=== PATIENT | female | born 1955 | race Caucasian/White ===

== ENCOUNTER 2020-12-17 05:36 | Day surgery (SDC) | payer OTHER ==
[2020-12-16 12:53] VITALS: BMI 33.6
[2020-12-17 09:06] LABS: BASO % 1.5 % (0-2.0); EOS % 2.4 % (0-4.5); HEMOGLOBIN 14.6 GM/dL (10.7-15.3); LYMPH % 34.5 % (8-40); MCH 28.5 pg (25.7-33.7); MEAN CELL VOLUME 83.9 fl (80-96); MEAN PLT VOLUME 8.8 fl (7.5-11.1); MONO % 7.3 % (3.8-10.2); NEUT % 54.3 % (42.8-82.8); PLATELET COUNT 185 10^3/uL (134-434); RBC 5.12 M/mm3 (3.60-5.2); RDW 14.3 % (11.6-15.6); WHITE BLOOD COUNT 7.5 K/mm3 (4.0-10.0)
[2020-12-17 09:13] LABS: INR 0.92 (0.83-1.09); PROTHROMBIN TIME (PATIENT) 11.4 SEC (9.7-13.0)
[2020-12-17 17:07] VITALS: TEMP 98
[2020-12-17 17:12] VITALS: BP 109/58; PULSE 59
== END 2020-12-17 15:00 | disposition home or self-care (01) ==
LOC: JRADIR 05:36
PROVIDERS: ATTEND Internal Medicine Hematology & Oncology
PROC: 07DR3ZX Extraction of Iliac Bone Marrow, Percutaneous Approach, Diagnostic (ICD-10-PCS; principal; 2020-12-17)
PROC: 079T3ZX Drainage of Bone Marrow, Percutaneous Approach, Diagnostic (ICD-10-PCS; 2020-12-17)
DX: E88.09 Other disorders of plasma-protein metabolism, not elsewhere classified (principal)
CPT/HCPCS: 20225; 36415; 82962; 85025; 85610

== ENCOUNTER 2021-01-07 13:28 | Inpatient (IN) | payer OTHER ==
[2021-01-07 15:08] LABS: BASO % 0.9 % (0-2.0); EOS % 1.4 % (0-4.5); HEMATOCRIT 43.9 % (32.4-45.2); HEMOGLOBIN 14.9 GM/dL (10.7-15.3); MCH 28.4 pg (25.7-33.7); MEAN CELL VOLUME 83.5 fl (80-96); MEAN PLT VOLUME 8.7 fl (7.5-11.1); MONO % 6.5 % (3.8-10.2); NEUT % 63.2 % (42.8-82.8); PLATELET COUNT 201 10^3/uL (134-434); RBC 5.25 M/mm3 (3.60-5.2); RDW 14.1 % (11.6-15.6); WHITE BLOOD COUNT 6.9 K/mm3 (4.0-10.0)
[2021-01-07 15:14] LABS: INR 1.02 (0.83-1.09); PROTHROMBIN TIME (PATIENT) 12.3 SEC (9.7-13.0)
[2021-01-07 15:27] LABS: CHLORIDE 108 mmol/L (98-107); SODIUM 141 mmol/L (136-145)
[2021-01-07 15:29] LABS: CALCIUM 9.5 mg/dL (8.5-10.1)
[2021-01-07 15:30] LABS: ALBUMIN 3.5 g/dl (3.4-5.0); ANION GAP 7 MMOL/L (8-16); BLOOD UREA NITROGEN 18.1 mg/dL (7-18); CO2 26 mmol/L (21-32); GLUCOSE,RANDOM 152 mg/dL (74-106)
[2021-01-07 15:33] LABS: CREATININE 0.9 mg/dL (0.55-1.3); SGOT/AST 23 U/L (15-37); SGPT/ALT 25 U/L (13-61)
[2021-01-07 15:35] LABS: BILIRUBIN,TOTAL 1.2 mg/dL (0.2-1); TOT PROT 7.6 g/dl (6.4-8.2)
[2021-01-07 15:36] LABS: ALK PHOS 55 U/L (45-117)
[2021-01-08 02:42] VITALS: BMI 34.7
[2021-01-08] MEDS: LEVOTHYROXINE NA 50 MCG TABLET (FP) PO SCH (06:09)
[2021-01-08 08:13] LABS: BASO % 0.6 % (0-2.0); EOS % 1.7 % (0-4.5); HEMATOCRIT 44.1 % (32.4-45.2); HEMOGLOBIN 14.6 GM/dL (10.7-15.3); LYMPH % 39.2 % (8-40); MCH 27.9 pg (25.7-33.7); MCHC 33.1 g/dl (32.0-36.0); MEAN CELL VOLUME 84.2 fl (80-96); MONO % 7.4 % (3.8-10.2); NEUT % 51.1 % (42.8-82.8); PLATELET COUNT 181 10^3/uL (134-434); RBC 5.24 M/mm3 (3.60-5.2); RDW 14.3 % (11.6-15.6); WHITE BLOOD COUNT 6.8 K/mm3 (4.0-10.0)
[2021-01-08 08:46] LABS: BILIRUBIN,TOTAL 1.4 mg/dL (0.2-1); TOT PROT 6.8 g/dl (6.4-8.2)
[2021-01-08 08:47] LABS: ALBUMIN 3.4 g/dl (3.4-5.0)
[2021-01-08 08:48] LABS: BLOOD UREA NITROGEN 18.1 mg/dL (7-18); MAGNESIUM 1.8 mg/dL (1.8-2.4)
[2021-01-08 08:51] LABS: CREATININE 0.7 mg/dL (0.55-1.3)
[2021-01-08] MEDS: ASPIRIN 81 MG CHEWABLE TABLETS PO SCH (09:39)
[2021-01-08] MEDS: BACITRACIN 15 GM TUBE TOPICAL OINTMENT TP SCH ×2 (09:46→21:40)
[2021-01-09] MEDS: LEVOTHYROXINE NA 50 MCG TABLET (FP) PO SCH (06:16)
[2021-01-09 09:18] VITALS: PULSE 63; TEMP 97.9
[2021-01-09] MEDS: ASPIRIN 81 MG CHEWABLE TABLETS PO SCH (09:19)
[2021-01-09] MEDS: BACITRACIN 15 GM TUBE TOPICAL OINTMENT TP SCH (09:19)
[2021-01-09 10:04] VITALS: BP 120/67
[2021-01-11 17:09] LABS: FREE KAPPA,SERUM 15.8 mg/L (3.3-19.4)
== END 2021-01-09 13:31 | disposition home or self-care (01) | DRG 312 ==
LOC: JER 13:28 → JERBED 16:53 → J4W 01-08 00:25
PROVIDERS: ADMIT Family Medicine; ATTEND Family Medicine
DX: I95.1 Orthostatic hypotension (principal); I10 Essential (primary) hypertension; D75.1 Secondary polycythemia; E11.9 Type 2 diabetes mellitus without complications; D47.2 Monoclonal gammopathy; E78.5 Hyperlipidemia, unspecified; M79.603 Pain in arm, unspecified; R51.9 Headache, unspecified; R00.1 Bradycardia, unspecified; S50.01XA Contusion of right elbow, initial encounter; W18.39XA Other fall on same level, initial encounter; Y92.098 Other place in other non-institutional residence as the place of occurrence of the external cause; S63.591A Other specified sprain of right wrist, initial encounter
CPT/HCPCS: 36415; 70450-TC; 70551-TC; 71046-TC-FY; 73070-TC-RT-FY; 73110-TC-RT-FY; 80053; 80061; 82550; 82784; 82962; 83721; 83735; 83883; 84443; 84484; 85025; 85610; 93005; 93010; 93880-TC; 97116-GP; 97161-GP; 99285-25; C9803; U0003; U0005

== ENCOUNTER 2021-08-26 04:42 | Day surgery (SDC) | payer OTHER ==
[2021-08-24 14:21] VITALS: BMI 32.1
[2021-08-26 09:05] VITALS: TEMP 99
[2021-08-26 09:32] VITALS: BP 115/66; PULSE 72
== END 2021-08-26 09:41 | disposition home or self-care (01) ==
LOC: JASU-ENDO 04:42
PROVIDERS: ATTEND Internal Medicine Gastroenterology
PROC: 0DB68ZX Excision of Stomach, Via Natural or Artificial Opening Endoscopic, Diagnostic (ICD-10-PCS; principal; 2021-08-26 08:45)
DX: K29.50 Unspecified chronic gastritis without bleeding (principal)
CPT/HCPCS: 88305-TC; 88342-TC

== ENCOUNTER 2024-10-25 10:44 | Emergency (ER) | payer OTHER ==
[2024-10-25 11:02] VITALS: BP 149/74; PULSE 90; RESP 16; TEMP 98.6; BMI 30.8
[2024-10-25] MEDS ORDERED: ACETAMINOPHEN INJECTION 100 ML ONE (12:43)
[2024-10-25] MEDS: ACETAMINOPHEN 1000 MG/100 ML BAG IVPB ONE (12:59)
[2024-10-25 13:29] LABS: ABSOLUTE IMMATURE GRANULOCYTES 0.01 x10^3/uL (0.0-0.031); BASOPHILS # 0.04 x10^3/uL (0.01-0.08); EOSINOPHIL % 0.7 % (0.7-5.8); EOSINOPHILS # 0.04 x10^3/uL (0.04-0.36); HEMATOCRIT 43.3 % (34.1-44.9); HEMOGLOBIN 14.5 g/dL (11.2-15.7); MCHC 33.5 g/dl (32.2-35.5); MEAN PLT VOLUME 10.7 fl (9.4-12.3); MONOCYTE # 0.44 x10^3/uL (0.24-0.86); MONOCYTE % 7.8 % (4.7-12.5); PLATELET COUNT 186 x10^3/uL (182-369); RDW 14.5 % (12.4-16.4)
[2024-10-25 13:30] LABS: URINE APPEARANCE CLEAR; URINE BILIRUBIN NEGATIVE (NEGATIVE); URINE COLOR YELLOW; URINE GLUCOSE (UA) 3+ (NEGATIVE); URINE KETONE NEGATIVE (NEGATIVE); URINE LEUK ESTERASE NEGATIVE (NEGATIVE); URINE NITRITE NEGATIVE (NEGATIVE); URINE PROTEIN NEGATIVE (NEGATIVE); URINE UROBILINOGEN 0.2 mg/dL (0.2-1.0)
[2024-10-25 13:37] LABS: INR 0.99 (0.83-1.09); PROTHROMBIN TIME (PATIENT) 10.8 SEC (9.7-13.0)
[2024-10-25 13:39] LABS: ACTIVATED PTT 24.9 SECONDS (25.2-36.5)
[2024-10-25 13:59] LABS: POTASSIUM 3.8 mmol/L (3.5-5.1)
[2024-10-25 14:01] LABS: CALCIUM 9.6 mg/dL (8.5-10.1)
[2024-10-25 14:02] LABS: ALBUMIN 3.4 g/dl (3.4-5.0)
[2024-10-25 14:03] LABS: BLOOD UREA NITROGEN 19.1 mg/dL (7-18)
[2024-10-25 14:07] LABS: BILIRUBIN,TOTAL 1.4 mg/dL (0.2-1); CREATININE 0.6 mg/dL (0.55-1.3); MAGNESIUM 1.6 mg/dL (1.8-2.4); TOT PROT 7.1 g/dl (6.4-8.2)
[2024-10-25] MEDS: KETOROLAC TROMETHAMINE 15 MG/ML VIAL IVPUSH ONE (15:51)
[2024-10-25] MEDS ORDERED: KETOROLAC TROMETHAMINE 15 MG/ML VIAL ONE (16:11)
== END 2024-10-25 17:10 | disposition home or self-care (01) ==
LOC: JER 10:44
PROC: 3E033NZ Introduction of Analgesics, Hypnotics, Sedatives into Peripheral Vein, Percutaneous Approach (ICD-10-PCS; principal; 2024-10-25)
PROC: 3E0333Z Introduction of Anti-inflammatory into Peripheral Vein, Percutaneous Approach (ICD-10-PCS; 2024-10-25)
DX: M54.50 Low back pain, unspecified (principal); R10.31 Right lower quadrant pain; R20.2 Paresthesia of skin
CPT/HCPCS: 36415; 71046-TC-FY; 74176-TC; 80053; 81003; 83735; 85025; 85610; 85730; 87086; 96374; 96375; 99285-25; J0131